=== PATIENT | male | born 1990 | race Caucasian/White ===

== ENCOUNTER 2018-04-02 09:24 | Emergency (ER) | payer OTHER ==
[2018-04-02 09:33] VITALS: BMI 28.3
[2018-04-02 09:43] VITALS: RESP 18; TEMP 99.8; O2SAT 98
[2018-04-02] MEDS ORDERED: Sodium Chloride 0.9% 1,000 ML IV STA (09:48)
[2018-04-02 10:13] LABS: BASO # 0.01 K/mm3 (0.0-2.0); BASO % 0.1 % (0.0-3.0); EOS # 0.2 (0.0-0.7); EOS % 2.2 % (1.5-5.0); GRAN # 5.65 (1.4-6.5); GRAN % 81.4 % (50.0-68.0); HEMOGLOBIN 16.2 g/dL (14.0-18.0); LYMPH # 0.7 (1.2-3.4); LYMPH % 10.5 % (22.0-35.0); MEAN CELL VOLUME 92.5 fl (80.0-105.0); MEAN CORPUSCULAR HEMOGLOBIN 30.3 pg (25.0-35.0); MEAN CORPUSCULAR HGB CONC 32.7 g/dl (31.0-37.0); MEAN PLATELET VOLUME 10.8 fl (7.0-11.0); MONO # 0.4 (0.1-0.6); MONO % 5.8 % (1.0-6.0); RBC 5.35 10^6/uL (3.5-6.1); WHITE BLOOD COUNT 6.9 10^3/uL (4.5-11.0)
[2018-04-02 10:43] LABS: ALB/GLOB RATIO 1.2 (1.1-1.8); ALBUMIN 4.2 g/dL (3.0-4.8); ALT/SGPT 30 U/L (7-56); AST/SGOT 28 U/L (17-59); BLOOD UREA NITROGEN 12 mg/dL (7-21); CALCIUM 8.5 mg/dL (8.4-10.5); GFR NON-AFRICAN AMERICAN > 60; LIPASE 85 U/L (23-300)
[2018-04-02 10:44] LABS: INR 1.05; PARTIAL THROMBOPLASTIN TIME 27.2 Seconds (25.1-36.5); PROTHROMBIN TIME 12.1 SECONDS (9.4-12.5)
[2018-04-02] MEDS ORDERED: Iohexol 350 MG/100 ML VIAL ONE (11:18)
--- NOTE | 2018-04-02 11:36 | RAD ---
Date of service: 04/02/2018 HISTORY: abdominal pain COMPARISON: No prior. FINDINGS: LUNGS: The lungs are well inflated and clear. PLEURA: No pleural effusions or pneumothorax. CARDIOVASCULAR: The heart is normal in size. No aortic atherosclerotic calcification present. OSSEOUS STRUCTURES: Within normal limits for the patient's age. VISUALIZED UPPER ABDOMEN: Normal. OTHER FINDINGS: None. IMPRESSION: No active pulmonary disease.
--- NOTE | 2018-04-02 11:38 | ED PDOC ---
Arrival/HPI - General Chief Complaint: Abdominal Pain Time Seen by Provider: 04/02/18 09:40 Historian: Patient, Spouse - History of Present Illness Narrative History of Present Illness (Text): 04/02/18 11:38 28 y/o male no significant PMH presents to the ED c/o abdominal pain, N/V, diarrhea x 2 days. Patient ate at a new [place] restaurant on Saturday, and developed vomiting and diarrhea Saturday morning. Abdominal pain is sharp, crampy, left sided worse with movement and vomiting. 6 episodes of non-bloody brown diarrhea this morning, no emesis today. Difficulty tolerating PO intake. Denies fevers, chills, back pain, urinary symptoms, testicular pain, penile discharge, numbness, weakness, paresthesias, rash, chest pain, SOB, or any other associated symptoms. Past Medical History - Provider Review Nursing Documentation Reviewed: Yes - Cardiac Hx Cardiac Disorders: No - Pulmonary Hx Respiratory Disorders: No - Neurological Hx Neurological Disorder: No - HEENT Hx HEENT Disorder: No - Renal Hx Renal Disorder: No - Endocrine/Metabolic Hx Endocrine Disorders: No - Hematological/Oncological Hx Blood Disorders: No - Integumentary Hx Dermatological Disorder: No - Musculoskeletal/Rheumatological Hx Musculoskeletal Disorders: No - Gastrointestinal Hx Gastrointestinal Disorders: No - Genitourinary/Gynecological Hx Genitourinary Disorders: No - Psychiatric Hx Psychophysiologic Disorder: No Hx Substance Use: No - Anesthesia Hx Anesthesia: No Family/Social History - Physician Review Nursing Documentation Reviewed: Yes Family/Social History: No Known Family HX Smoking Status: Never Smoked Hx Alcohol Use: Yes Frequency of alcohol use: Socially Hx Substance Use: No Allergies/Home Meds Allergies/Adverse Reactions: Allergies No Known Allergies Allergy (Verified 04/02/18 09:33) Review of Systems - Physician Review All systems were reviewed & negative as marked: Yes - Review of Systems Constitutional: Normal. absent: Fatigue, Fevers Eyes: Normal. absent: Vision Changes ENT: Normal. absent: Sinus Congestion Respiratory: Normal. absent: SOB, Cough Cardiovascular: Normal. absent: Chest Pain, Palpitations, Syncope Gastrointestinal: Abdominal Pain, Diarrhea, Nausea, Vomiting Genitourinary Male: Normal. absent: Dysuria, Frequency Musculoskeletal: Normal. absent: Arthralgias, Back Pain, Neck Pain Skin: Normal. absent: Rash Neurological: Normal. absent: Headache, Dizziness Endocrine: Normal Hemo/Lymphatic: Normal Psychiatric: Normal Physical Exam Vital Signs Reviewed: Yes Vital Signs Temp Pulse Resp BP Pulse Ox 04/02/18 09:43 99.8 F H 87 18 126/76 98 Temperature: Afebrile Blood Pressure: Normal Pulse: Regular Respiratory Rate: Normal Appearance: Positive for: Well-Appearing, Non-Toxic, Comfortable Pain Distress: None Mental Status: Positive for: Alert and Oriented X 3 - Systems Exam Head: Present: Atraumatic, Normocephalic Pupils: Present: PERRL Extroacular Muscles: Present: EOMI Conjunctiva: Present: Normal Ears: Present: Normal, NORMAL TM Mouth: Present: Moist Mucous Membranes Pharnyx: Present: Normal. No: ERYTHEMA, EXUDATE Nose (External): Present: Atraumatic Nose (Internal): Present: Normal Inspection Neck: Present: Normal Range of Motion Respiratory/Chest: Present: Clear to Auscultation, Good Air Exchange. No: Respiratory Distress, Accessory Muscle Use Cardiovascular: Present: Regular Rate and Rhythm, Normal S1, S2. No: Murmurs Abdomen: Present: Tenderness (LUQ, LLQ ). No: Distention, Normal Bowel Sounds (hyperactive throughout), Peritoneal Signs, Rebound, Guarding Back: Present: Normal Inspection. No: CVA Tenderness Upper Extremity: Present: Normal Inspection, Normal ROM, NORMAL PULSES, Ca pillary Refill < 2s. No: Cyanosis, Edema Lower Extremity: Present: Normal Inspection, NORMAL PULSES, Normal ROM, Capillary Refill < 2 s. No: Edema Neurological: Present: GCS=15, CN II-XII Intact, Speech Normal, Motor Func Grossly Intact, Normal Sensory Function, Gait Normal Skin: Present: Warm, Dry, Normal Color. No: Rashes Psychiatric: Present: Alert, Oriented x 3, Normal Insight, Normal Concentration, Normal Affect, Normal Mood Medical Decision Making ED Course and Treatment: Initial Plan: * CBC, CMP * Lipase * Mg, Phos * Coags * CT Abd/Pelvis IV Contrast * IVF * Zofran * Pepcid 11:34 Re-eval, patient feeling much better. Reports complete resolution of nausea and abdominal pain. No episodes of diarrhea in ED. Labs: wnl Advised to followup with PMD for isolated thrombocytopenia. CT Abd/Pelvis: no acute pathology Plan of care discussed with patient, and strict instructions given regarding prescriptions, importance of follow up, and signs to return to Emergency Department, to include fever, chills, chest pain, SOB, intractable vomiting, or any other new/worsening symptoms. Patient verbalizes understanding of discuss ion. Patient A&Ox3, ambulating with steady gait, stable for discharge home. - Lab Interpretations Lab Results: 04/02/18 10:02 04/02/18 10:24 Lab Results 04/02/18 10:24: Sodium 139, Potassium 4.1, Chloride 104, Carbon Dioxide 26, Anion Gap 12, BUN 12, Creatinine 1.1, Est GFR ( Amer) > 60, Est GFR (Non- Af Amer) > 60, Random Glucose 95, Calcium 8.5, Magnesium 1.8, Total Bilirubin 0.5, AST 28, ALT 30, Alkaline Phosphatase 68, Total Protein 7.8, Albumin 4.2, G lobulin 3.6, Albumin/Globulin Ratio 1.2, Lipase 85 04/02/18 10:24: PT 12.1, INR 1.05, APTT 27.2 04/02/18 10:02: WBC 6.9, RBC 5.35, Hgb 16.2, Hct 49.5, MCV 92.5, MCH 30.3, MCHC 32.7, RDW 13.0, Plt Count 116 L, MPV 10.8, Gran % 81.4 H, Lymph % (Auto) 10.5 L, Bremer % (Auto) 5.8, Eos % (Auto) 2.2, Baso % (Auto) 0.1, Gran # 5.65, Lymph # (Auto) 0.7 L, Bremer # (Auto) 0.4, Eos # (Auto) 0.2, Baso # (Auto) 0.01 I have reviewed the lab results: Yes Interpretation: All labs normal - RAD Interpretation Narrative RAD Interpretations (Text): CXR: no active disease CT Abd/Pelvis with IV Contrast: No acute pathology Radiology Orders: 04/02/18 09:48 CHEST PORTABLE [RAD] Stat 04/02/18 09:49 ABD & PELVIS IV CONTRAST ONLY [CT] Stat Radiology Technologist: Radiologist - Medication Orders Current Medication Orders: Discontinued Medications Famotidine (Pepcid) 20 mg IVP STAT STA Stop: 04/02/18 09:49 Last Admin: 04/02/18 10:00 Dose: 20 mg IVP Administration Document 04/02/18 10:00 BB (Rec: 04/02/18 10:05 BB [facility] [id number] Charges for Administration # of IVP Administrations 1 Sodium Chloride (Sodium Chloride 0.9%) 1,000 mls @ 999 mls/hr IV .Q1H1M STA Stop: 04/02/18 10:48 Last Admin: 04/02/18 10:05 Dose: 999 mls/hr eMAR Start Stop Document 04/02/18 10:05 BB (Rec: 04/02/18 10:05 BB [facility] [id number] Intravenous Solution Start Date 04/02/18 Start Time 10:00 End Date 04/02/18 End time 11:00 Total Infusion Time 60 Ondansetron HCl (Zofran Inj) 4 mg IVP STAT STA Stop: 04/02/18 09:49 Last Admin: 04/02/18 10:00 Dose: 4 mg IVP Administration Document 04/02/18 10:00 BB (Rec: 04/02/18 10:05 BB [facility] [id number] Charges for Administration # of IVP Administrations 1 Disposition/Present on Arrival - Present on Arrival Any Indicators Present on Arrival: No History of DVT/PE: No History of Uncontrolled Diabetes: No Urinary Catheter: No History of Decub. Ulcer: No History Surgical Site Infection Following: None - Disposition Have Diagnosis and Disposition been Completed?: Yes Diagnosis: Abdominal pain Disposition: HOME/ ROUTINE Disposition Time: 13:00 Patient Plan: Discharge Condition: IMPROVED Discharge Instructions (ExitCare): Acute Abdomen (Belly Pain) Additional Instructions: Increase fluids to stay hydrated Take pepcid every 12 hours as needed Rest, no strenuous activity Followup with primary doctor within 2 days Return to ER for any new/worsening symptoms Prescriptions: Famotidine [Pepcid] 20 mg PO Q12H PRN #30 tab PRN Reason: Pain, Moderate (4-7) Referrals: [facility] [place] - Follow up with primary Clary Holt MD [Medical Doctor] - Follow up with primary Forms: [employer] (Y[place]i), WORK NOTE
[2018-04-02 11:40] LABS: URINE BILIRUBIN NEGATIVE (NEGATIVE); URINE BLOOD NEGATIVE (NEGATIVE); URINE GLUCOSE (UA) NEGATIVE (NEGATIVE); URINE LEUKOCYTE ESTERASE NEGATIVE Leu/uL (NEGATIVE); URINE PROTEIN TRACE mg/dL (<30 mg/dL); URINE UROBILINOGEN 0.2 E.U./dL (<1 E.U./dL)
[2018-04-02 11:42] LABS: URINE APPEARANCE CLEAR (CLEAR); URINE COLOR YELLOW (YELLOW)
[2018-04-02 11:52] LABS: URINE BACTERIA SMALL (NEG); URINE RBC 0 - 2 /hpf (0-2); URINE WBC 0 - 2 /hpf (0-6)
[2018-04-02 12:22] VITALS: BP 118/69; PULSE 75
--- NOTE | 2018-04-02 12:27 | CT ---
Date of service: 04/02/2018 PROCEDURE: CT Abdomen and Pelvis with and without intravenous contrast HISTORY: left sided abdominal pain COMPARISON: None. TECHNIQUE: Axial images of the abdomen were obtained in the pre contrast, portal venous and delayed phases of enhancement. Coronal and sagittal reformats were generated. Contrast dose: Radiation dose: Total exam DLP = 473.16 mGy-cm. This CT exam was performed using one or more of the following dose reduction techniques: Automated exposure control, adjustment of the mA and/or kV according to patient size, and/or use of iterative reconstruction technique. FINDINGS: LOWER THORAX: Unremarkable. LIVER: Unremarkable. No gross lesion or ductal dilatation. GALLBLADDER AND BILE DUCTS: Unremarkable. PANCREAS: Unremarkable. No gross lesion or ductal dilatation. SPLEEN: Unremarkable. ADRENALS: Unremarkable. No mass. KIDNEYS AND URETERS: Unremarkable. No hydronephrosis. No solid mass. VASCULATURE: Unremarkable. No aortic aneurysm. No aortic atherosclerotic calcification or mural plaque present. BOWEL: Unremarkable. No obstruction. No gross mural thickening. APPENDIX: Normal appendix. PERITONEUM: Unremarkable. No free fluid. No free air. LYMPH NODES: Unremarkable. No enlarged lymph nodes. BLADDER: Unremarkable. REPRODUCTIVE: Unremarkable. BONES: No acute fracture. OTHER FINDINGS: None. IMPRESSION: Unremarkable pre and post contrast enhanced CT of the abdomen and pelvis.
== END 2018-04-02 13:26 | disposition home or self-care (01) ==
LOC: ED 09:24
DX: R10.9 Unspecified abdominal pain (principal)
CPT/HCPCS: 71045; 74177; 80053; 81001; 83690; 83735; 85025; 85610; 85730; 87086; 96361; 96374; 96375; 99284; J2405; J7030; Q9967